=== PATIENT | male | born 1985 | race Caucasian/White ===

== ENCOUNTER 2017-03-04 17:26 | Emergency (ER) | payer OTHER ==
[~2017-03-04] VITALS: Ht 177.8 cm; Wt 104.3 kg
[2017-03-04 18:00] VITALS: BP 129/56
[2017-03-04 19:30] VITALS: BP 134/59
--- NOTE | 2017-03-04 19:33 | Emergency Room Report ---
History of Present Illness General Chief Complaint: Seizure Source: Patient Present Illness HPI 31 [id number] male brought in by EMS after suspected seizure stated he was playing Scrabble with his friends, lost consciousness for 30 seconds Denies any trauma Denies known history of seizures Denies biting tongue, urinary incontinence there was no postictal period he denies alcohol or drug use History of schizophrenia, compliant with medication, also on benzo taper currently asymptomatic Allergies: Uncoded Allergies: BEE (Allergy, Severe, Anaphylaxis, 03/04/17) Patient History Past Medical History: psych hx Past Surgical History: none Pertinent Family History: none Social History: Denies: smoking, alcohol use, drug use Immunizations: UTD Reviewed Nursing Documentation: PMH: Agreed, PSxH: Agreed Review of Systems All Other Systems: negative except mentioned in HPI Physical Exam Vital Signs Date Time Temp Pulse Resp B/P (MAP) Pulse Ox O2 Delivery O2 Flow Rate FiO2 03/04/17 17:18 98.2 97 16 125/74 98 Room Air Sp02 EP Interpretation: reviewed, normal General Appearance: normal inspection, well appearing, no apparent distress, alert, GCS 15, non-toxic, other - not post-ictal Head: normocephalic, atraumatic Eyes: bilateral eye PERRL, bilateral eye EOMI ENT: normal ENT inspection, hearing grossly normal, normal pharynx, no angioedema, normal voice, TMs + canals normal, uvula midline, moist mucus membranes Neck: normal inspection, full range of motion, supple, thyroid normal, no meningismus, no bony tend Respiratory: normal inspection, lungs clear, normal breath sounds, no rhonchi, no respiratory distress, no retraction, no accessory muscle use, no wheezing, speaking full sentences Cardiovascular #1: regular rate, rhythm, no edema, no JVD, normal capillary refill Gastrointestinal: normal inspection, normal bowel sounds, non tender, soft, no mass, no peritonitis, non-distended, no guarding, no hernia, no pulsatile mass Genitourinary: no CVA tenderness Musculoskeletal: normal inspection, back normal, normal range of motion, no calf tenderness, pelvis stable, Lilian's Sign negative Neurologic: normal inspection, alert, oriented x3, responsive, fermenting cellars receiver III-XII nml as tested, motor strength/tone normal, cerebellar normal, normal gait, speech normal Psychiatric: normal inspection, judgement/insight normal, mood/affect normal, no suicidal/homicidal ideation, no delusions, other - Calm, cooperative Skin: normal inspection, normal color, no rash Lymphatic: normal inspection, no adenopathy Medical Decision Making Diagnostic Impression: Primary Impression: Syncope Qualified Codes: R55 - Syncope and collapse ER Course 31-year-old male with episode of passing out Unlikely seizure given no postictal period, no urinary incontinence, no tongue biting no previous history of seizures ECG nonischemic Observed multiple hours in the ED without additional syncopal or seizure Advised PMD followup DC home yo M F with DDX: Plan: Obtain labs, ua, ucx, ucg, CXR, EKG ER course: Patient has remained stable during ED stay. Disposition: Patient is to be discharged to home. Patient is instructed to follow up with their primary care doctor within 5 days. Strict return precautions discussed with patient such as fever, chills, worsening/severe pain, nausea, vomiting, which may indicate severe illness. Patient verbalizes understanding and agrees with plan. Please note that this Emergency Department Report was dictated using [employer] line operator technology software, occasionally this can lead to erroneous entry secondary to interpretation by the dictation equipment EKG Diagnostic Results Rate: normal Rhythm: NSR ST Segments: no acute changes ASA given to the pt in ED: No Rhythm Strip Diag. Results EP Interpretation: yes Rate: 84 Rhythm: NSR, no PVC's, no ectopy Last Vital Signs Date Time Temp Pulse Resp B/P (MAP) Pulse Ox O2 Delivery O2 Flow Rate FiO2 03/04/17 17:18 98.2 97 16 125/74 98 Room Air Status: improved Disposition: HOME, SELF-CARE IFRAH TATE M.D. Mar 04, 2017 19:33
[2017-03-04 20:15] VITALS: BP 134/59
--- NOTE | 2017-03-07 19:22 | Cardiology Report ---
APPROVED REPORT EKG Measurement Heart [id number] Normal sinus rhythm with sinus arrhythmia Normal ECG
== END 2017-03-04 20:15 | disposition home or self-care (01) ==
LOC: EDBD 17:26 → EMR 18:09
DX: R55 Syncope and collapse (principal); Z91.030 Bee allergy status
CPT/HCPCS: 93005; 99283